=== PATIENT | female | born 1985 ===

== ENCOUNTER → 2019-01-05 | Outpatient (REF) | LOC: M LAB LCGH 10:36 | PROVIDERS: ATTEND Obstetrics & Gynecology Reproductive Endocrinology | DX: Z00.00 Encounter for general adult medical examination without abnormal findings (principal) ==

== ENCOUNTER → 2019-02-01 | Outpatient (REF) | LOC: M LAB LCGH 11:09 | PROVIDERS: ATTEND Obstetrics & Gynecology Reproductive Endocrinology | DX: Z00.00 Encounter for general adult medical examination without abnormal findings (principal) ==

== ENCOUNTER → 2019-03-22 | Outpatient (REF) | LOC: M LAB LCGH 10:24 | PROVIDERS: ATTEND Obstetrics & Gynecology Reproductive Endocrinology | DX: E28.9 Ovarian dysfunction, unspecified (principal) ==

== ENCOUNTER → 2019-03-30 | Outpatient (REF) | LOC: M LAB REF 11:05 | PROVIDERS: ATTEND Obstetrics & Gynecology Reproductive Endocrinology | DX: E28.9 Ovarian dysfunction, unspecified (principal) ==

== ENCOUNTER → 2019-04-23 | Outpatient (REF) | LOC: M LAB LCGH 10:54 | PROVIDERS: ATTEND Obstetrics & Gynecology Reproductive Endocrinology | DX: E28.9 Ovarian dysfunction, unspecified (principal) ==

== ENCOUNTER → 2019-05-24 | Outpatient (REF) | LOC: M LAB REF 11:10 | PROVIDERS: ATTEND Obstetrics & Gynecology Reproductive Endocrinology | DX: E28.9 Ovarian dysfunction, unspecified (principal) ==

== ENCOUNTER → 2019-10-01 | Outpatient (REF) | LOC: M LAB LCGH 11:21 | PROVIDERS: ATTEND Obstetrics & Gynecology Reproductive Endocrinology | DX: Z00.00 Encounter for general adult medical examination without abnormal findings (principal) ==

== ENCOUNTER → 2019-10-09 | Outpatient (REF) | LOC: M LAB LCGH 11:31 | PROVIDERS: ATTEND Internal Medicine | DX: Z00.00 Encounter for general adult medical examination without abnormal findings (principal) ==

== ENCOUNTER → 2020-01-23 | Outpatient (REF) | LOC: M LAB LCGH 10:39 | PROVIDERS: ATTEND Obstetrics & Gynecology Reproductive Endocrinology | DX: Z00.00 Encounter for general adult medical examination without abnormal findings (principal) ==

== ENCOUNTER → 2020-01-30 | Outpatient (REF) | LOC: M LAB LCGH 10:46 | PROVIDERS: ATTEND Obstetrics & Gynecology Reproductive Endocrinology | DX: Z51.81 Encounter for therapeutic drug level monitoring (principal) ==